=== PATIENT | male | born 1995 | race Caucasian/White ===

== ENCOUNTER 2017-12-04 21:18 | Emergency (ER) | payer OTHER ==
--- NOTE | 2017-12-04 21:50 | EDPHY ---
H & P Time Seen by Provider: 12/04/17 21:28 HPI/ROS: HPI Altered mental status. 22-year-old male with [employer] police and by EMS. This patient states that he has been doing LSD and smoking marijuana. He was found by police running in and out of traffic. He was arrested by police. He was tazed. This was apparently on the lawn. He was brought gently to the ground. He was brought to the emergency department for medical clearance. On the way to the emergency department he became very combative. He was subsequently given 5 mg of intramuscular Haldol, 2 mg of intramuscular Versed and 25 mg of intramuscular Benadryl. He is more cooperative in come after the sedative medications. ROS: Unable to obtain. Past medical history: Unable to obtain. Social history: Unable to obtain. Physical Exam: General Appearance: Sleepy but intermittently aggressive toward staff. In restraints. Not responding to questions. This patient appears well-hydrated and well-nourished. Head: Normocephalic atraumatic. Eyes: Pupils equal and round no pallor or injection. No lid edema, erythema or injection. ENT, Mouth: Mucous membranes are moist. The pharyngeal tissues are unremarkable. No edema or swelling. No asymmetry suggestive of abscess. No erythema or exudates. Dentition intact. No tongue lacerations or abrasions. Respiratory: There are no retractions, lungs are clear to auscultation with good air movement bilaterally. Cardiovascular: Regular rate and rhythm. No murmur. Gastrointestinal: Abdomen is soft and nontender, no masses, bowel sounds normal. No focal tenderness at McBurney's point. No Guidry sign. Neurological: Motor sensory function is grossly intact. Cranial nerves grossly are normal. Skin: Warm and dry, no rashes. Musculoskeletal: Neck is supple and nontender. Extremities are symmetrical. All joints range without pain or impingement. Psychiatric: Agitation and combative behavior. Database: EKG: Imaging: Procedures: Emergency department course: Patient placed on a monitoring specialist. IV established. Vital signs reviewed. Blood pressure is 117/91, pulse oximetry 96% on 2 L nasal cannula oxygen. Heart rate 100. At this time we will allow this patient to appropriately sober from his sedation and then reassess him for medical clearance and discharged to shelter. 11:00 p.m., patient re-evaluated. Sleeping but easily arousable, responding to questions appropriately, up and ambulatory under his own power. He denies any complaints at this time. He denies being suicidal. He reports he was taking LSD and smoking marijuana to [employer]. He has been medically cleared for discharge to shelter with [facility]. His remaining emergency department course under my care has been uneventful. Follow-up and return to emergency department precautions have been reviewed with him. All of his questions were answered. He was discharged in good condition with [facility]. Differential Diagnosis: The differential diagnosis on this patient includes but is not limited to psychotropic street drug intoxication, alcohol intoxication. Traumatic brain injury, suicidal ideation, other significant traumatic injury unlikely. This represents a partial list of diagnoses considered. These considerations are based on history, physical exam, past history, reassessment and diagnostic testing. Constitutional: Initial Vital Signs Temperature (C) 37.1 C 12/04/17 21:15 Heart Rate 112 H 12/04/17 21:15 Respiratory Rate 18 12/04/17 21:15 Blood Pressure 137/80 H 12/04/17 21:15 O2 Sat (%) 91 L 12/04/17 21:15 O2 Delivery Mode Room Air O2 (L/minute) 2 Allergies/Adverse Reactions: Unable to Assess Allergy (Unverified 12/04/17 21:39) Home Medications: Medication Instructions Recorded Unobtainable 12/04/17 Departure - Departure Disposition: Law Enforcement/Court/Intermediate Clinical Impression: Altered mental status, Psychotropic overdose Condition: Good Instructions: Polysubstance Abuse (ED) Additional Instructions: Read and follow provided instructions. Follow-up with your primary care physician on Wednesday as needed. Do not do drugs or drink alcohol. Return to the emergency department for worsening symptoms or other serious concerns. Referrals: Patient,NotPresent [Primary Care Provider] - As per Instructions
[2017-12-04 23:20] VITALS: BP 112/87
== END 2017-12-04 23:20 ==
DX: R41.82 Altered mental status, unspecified (principal); T43.8X5A Adverse effect of other psychotropic drugs, initial encounter